=== PATIENT | male | born 1950 | race Caucasian/White ===

== ENCOUNTER 2017-05-02 09:38 | Inpatient (IN) | payer MEDICARE ==
[~2017-05-02] VITALS: Ht 175.3 cm; Wt 66.2 kg
[2017-05-02 10:53] LABS: BASOPHILS 0.2 % (0-2); EOSINOPHILS 1.1 % (0-7); HEMATOCRIT 48.8 % (42.0-54.0); HEMOGLOBIN 17.5 g/dL (13.5-17.5); IMMATURE GRANULOCYTES 0.3 % (0-5); LYMPHOCYTES 17.3 % (15-50); MCH 33.1 pg (26.0-34.0); MCHC 35.9 g/dL (31.0-37.0); MCV 92.4 fL (80.0-100.0); MEAN PLATELET VOLUME 10.5 fL (7.4-10.4); MONOCYTES 5.8 % (2-11); NEUTROPHILS 75.3 % (40-80); PLATELET COUNT 153 10x3/uL (130-400); RBC 5.28 10x6/uL (4.20-6.10); RDW 12.5 % (11.5-14.5); WBC 6.5 10x3/uL (4.8-10.8)
[2017-05-02 11:10] LABS: CALC OSMOLALITY 279 mosm/kg (275-300); CALCIUM 9.2 mg/dL (8.5-10.1); CARBON DIOXIDE 28.1 mmol/L (21.0-32.0); CHLORIDE - SERUM 98 mmol/L (98-107); CREATININE - SERUM 0.9 mg/dL (0.6-1.3); GLUCOSE 302 mg/dL (74-106); POTASSIUM - SERUM 3.7 mmol/L (3.5-5.1); SODIUM 135 mmol/L (136-145); UREA NITROGEN 10 mg/dL (7-18); eGFR NON AFRICAN AMERICAN 90 mL/min (90-120)
[2017-05-02 11:11] LABS: ALBUMIN 3.6 g/dL (3.4-5.0); ALKALINE PHOSPHATASE 157 U/L (46-116); ALT (SGPT) 18 U/L (10-68); INR 1.01 (0.85-1.17); PROTEIN - SERUM 7.5 g/dL (6.4-8.2); PROTIME 13.1 SECONDS (11.6-15.0)
[2017-05-02 11:12] LABS: APTT 26.4 SECONDS (22.8-39.4)
[2017-05-02 11:47] LABS: APPEARANCE CLEAR (CLEAR); BILIRUBIN NEGATIVE (NEGATIVE); COLOR YELLOW (YELLOW); GLUCOSE 1000 mg/dL (NEGATIVE); KETONE NEGATIVE (NEGATIVE); NITRITE NEGATIVE (NEGATIVE); PROTEIN NEGATIVE (NEGATIVE)
--- NOTE | 2017-05-02 15:14 | NUR ---
TRANSFER FROM ER AFTER MRI BY W/C. OEINTED TO ROOM. CALL LIGHT IN REACH. WILL CONT. PLAN OF CARE.
[2017-05-02 15:33] VITALS: BP 145/85; BMI 21.7
[2017-05-02 16:00] VITALS: BP 145/85
[2017-05-02 16:04] LABS: HEMOGLOBIN A1C 9.3 % (4.8-6.0)
[2017-05-02 16:23] LABS: CHOL - HDL RATIO 5.3 ratio (2.3-4.9); LDL-HDL RATIO 3.4 ratio (1.5-3.5)
[2017-05-02 16:31] LABS: CKMB 0.6 U/L (0.0-3.6); CREATINE KINASE 61 UL (21-232)
[2017-05-02 16:37] LABS: TROPONIN-I < 0.017 ng/mL (0.000-0.060)
--- NOTE | 2017-05-02 19:38 | NUR ---
ASSESSMENT COMPLETE, A&O, RESPERATIONS EVEN ON RA. IV TO LEFT AC SL, SITE CLEAN AND DRY. PT DENIES PAIN OR NEEDS, BED LOW, CL IN REACH. ALARM IN USE FOR PT SAFETY.
--- NOTE | 2017-05-02 21:03 | NUR ---
UP WITH ASSIST FROM PARAPLANNER TO BR.
--- NOTE | 2017-05-02 21:21 | NUR ---
HS MEDS GIVEN WITH FRESH ICE WATER. PT DENIES PAIN OR NEEDS, BED LOW, CL IN REACH.
[2017-05-02 22:18] VITALS: BP 162/82
[2017-05-02 22:46] LABS: CKMB 0.5 U/L (0.0-3.6); CREATINE KINASE 62 UL (21-232)
[2017-05-02 22:47] LABS: TROPONIN-I < 0.017 ng/mL (0.000-0.060)
[2017-05-03] VITALS (7 sets, daily range): BP systolic 139–175; BP diastolic 69–100; Ht 175.3 cm; Wt 66.2 kg
--- NOTE | 2017-05-03 03:36 | NUR ---
RESTING WITH EYES CLOSED, RESPERATIONS EVEN, NO S/S DISTRESS NOTED.
[2017-05-03 03:53] LABS: BASOPHILS 0 % (0-2); EOSINOPHILS 3.3 % (0-7); HEMATOCRIT 44.6 % (42.0-54.0); HEMOGLOBIN 15.5 g/dL (13.5-17.5); IMMATURE GRANULOCYTES 0.1 % (0-5); LYMPHOCYTES 23.1 % (15-50); MCH 32.4 pg (26.0-34.0); MCHC 34.8 g/dL (31.0-37.0); MCV 93.3 fL (80.0-100.0); MEAN PLATELET VOLUME 10.5 fL (7.4-10.4); MONOCYTES 6.3 % (2-11); NEUTROPHILS 67.2 % (40-80); PLATELET COUNT 146 10x3/uL (130-400); RBC 4.78 10x6/uL (4.20-6.10); RDW 12.4 % (11.5-14.5); WBC 6.9 10x3/uL (4.8-10.8)
[2017-05-03 04:23] LABS: ALBUMIN 3.1 g/dL (3.4-5.0); ALKALINE PHOSPHATASE 137 U/L (46-116); ALT (SGPT) 18 U/L (10-68); BILIRUBIN - TOTAL 0.56 mg/dL (0.2-1.3); CALCIUM 8.4 mg/dL (8.5-10.1); CARBON DIOXIDE 27.3 mmol/L (21.0-32.0); CHLORIDE - SERUM 102 mmol/L (98-107); CKMB 0.4 U/L (0.0-3.6); CREATINE KINASE 62 UL (21-232); POTASSIUM - SERUM 3.8 mmol/L (3.5-5.1); PROTEIN - SERUM 6.5 g/dL (6.4-8.2); SODIUM 140 mmol/L (136-145); UREA NITROGEN 10 mg/dL (7-18); eGFR NON AFRICAN AMERICAN 80 mL/min (90-120)
[2017-05-03 04:24] LABS: CALC OSMOLALITY 281 mosm/kg (275-300); GLUCOSE 178 mg/dL (74-106); TROPONIN-I < 0.017 ng/mL (0.000-0.060)
--- NOTE | 2017-05-03 07:55 | NUR ---
AM ROUNDS - PT IN BED AND AWAKE AT THIS TIME. DR. MCALLISTER IN ROOM. MOMNITOR SHOWING SR, HR 73. IV TO LEFT AC, SL. NON SKID SOCKS ON. CALL CASTREJON IN USE/REACH. SIDE RAILS UP X2. BED AT LOWEST POSITION. NO NEEDS AT THIS TIME. WILL CONTINUE TO MONITOR
--- NOTE | 2017-05-03 11:43 | NUR ---
PT REFUSES SCD
--- NOTE | 2017-05-03 15:10 | NUR ---
Nutrition education for DMT2: Pt and daughter present for instruction. Pt reports he drinks a lot of regular coke every day and uses a lot sugar and cream in his coffee. Pt lives alone and mostly drinks cokes; states he eats maybe one or two meals a day. Pt reports he has been losing weight lately. Reviewed CHO containing foods and the affect CHO have on glucose. Reviewed sample menus and the plate method of meal planning. Stressed the importance of eating regularly scheduled meals - at least 3 meals a day - to keep glucose under better control. Reviewed portion sizes of common CHO foods. Advised pt to stop drinking all sugary drinks, including juice, to get better control of glucose. Advised pt to start drinking water to quench thirst. Answered pts questions. Provided pt with printed diet information and RDN name and phone number. Pt with fair understanding of information provided. Thank you for the consult.
--- NOTE | 2017-05-03 17:49 | NUR ---
PT IN BED WITH NO NEEDS AT THIS TIME. WILL CONTINUE TO MONITOR
[2017-05-04 04:00] VITALS: BP 149/76
--- NOTE | 2017-05-04 05:26 | NUR ---
PT LYING ON RIGHT SIDE, RESTING COMFORTABLY. CONTINUE TO MONITOR CLOSELY.
[2017-05-04 06:15] LABS: BASOPHILS 0.1 % (0-2); EOSINOPHILS 1.9 % (0-7); HEMATOCRIT 48.5 % (42.0-54.0); HEMOGLOBIN 16.9 g/dL (13.5-17.5); IMMATURE GRANULOCYTES 0.4 % (0-5); LYMPHOCYTES 14.3 % (15-50); MCH 32.6 pg (26.0-34.0); MCHC 34.8 g/dL (31.0-37.0); MCV 93.4 fL (80.0-100.0); MEAN PLATELET VOLUME 10.3 fL (7.4-10.4); MONOCYTES 5.3 % (2-11); PLATELET COUNT 170 10x3/uL (130-400); RBC 5.19 10x6/uL (4.20-6.10); RDW 12.5 % (11.5-14.5); WBC 8.4 10x3/uL (4.8-10.8)
[2017-05-04 06:40] LABS: ALBUMIN 3.4 g/dL (3.4-5.0); ALKALINE PHOSPHATASE 156 U/L (46-116); ALT (SGPT) 16 U/L (10-68); BILIRUBIN - TOTAL 0.64 mg/dL (0.2-1.3); CALC OSMOLALITY 278 mosm/kg (275-300); CALCIUM 8.9 mg/dL (8.5-10.1); CARBON DIOXIDE 26.4 mmol/L (21.0-32.0); CHLORIDE - SERUM 101 mmol/L (98-107); CREATININE - SERUM 0.8 mg/dL (0.6-1.3); GLUCOSE 164 mg/dL (74-106); POTASSIUM - SERUM 4.2 mmol/L (3.5-5.1); PROTEIN - SERUM 7.2 g/dL (6.4-8.2); SODIUM 137 mmol/L (136-145); eGFR NON AFRICAN AMERICAN > 90 mL/min (90-120)
[2017-05-04 06:43] LABS: UREA NITROGEN 15 mg/dL (7-18)
[2017-05-04 08:00] VITALS: BP 153/84
--- NOTE | 2017-05-04 08:18 | NUR ---
AM ROUNDS - PT IN BED AND AWAKE AT THIS TIME. NON SKID SOCKS ON. SCD OFF AT THIS TIME. A&O. IV TO LEFT AC, SL. PT IS ON ROOM AIR. PT IS UP AD [place]. MONITOR SHOWING SR, HR 83. BED AT LOWEST POSITION. CALL CASTREJON IN USE/REACH. SIDE RAILS UP X2. NO NEEDS AT THIS TIME. WILL CONTINUE TO MONITOR
[2017-05-04 11:51] VITALS: BP 150/90
[2017-05-04] MEDS ORDERED: ASPIRIN325 MG PO (14:26)
[2017-05-04] MEDS ORDERED: NICODERM C1 PATCH .1 TRANSDERM (14:26)
[2017-05-04] MEDS ORDERED: GLUCOPHAGE500 MG PO (14:27)
[2017-05-04] MEDS ORDERED: HUMULIN R100 U/ML SC (14:27)
[2017-05-04] MEDS ORDERED: LOVASTATIN20 MG PO (16:16)
--- NOTE | 2017-05-04 16:23 | NUR ---
Rehab Note- Acute Rehab Prescreen order received. Visisted with the patient and talked with pt's daughter via telephone. Informed JOSE Centeno that the patient could be accepted to [facility] Acute Rehab today. Thank you for this referral! Neeta Barry RN Clinical Liaison, [facility] Rehab
[2017-05-04 17:26] VITALS: BP 167/87
--- NOTE | 2017-05-04 17:52 | NUR ---
Patient Name: JEFRY RODRIGUEZ Admission Status: ER Accout number: [id number] Admission Date: 05-03-2017 : 1950 Admission Diagnosis: Attending: OSMAR DOCKERY Current LOS: 1 Anticipated DC Date: 05-04-2017 Planned Disposition: Inpatient Rehab Primary Insurance: MEDICARE A & B PLANNED EXTERNAL PROVIDER: [facility] Discharge Planning Comments: * Is the patient Alert and Oriented? Yes 0 * How many steps to enter\exit or inside your home? 14 0 * PCP DOCTOR IN [facility], CANNOT REMEMBER 0 * [facility] [place] 0 * Preadmission Environment Home Alone 0 * ADLs Independent 0 * Equipment None 0 * Other Equipment NO MEDICAL EQUIPMENT PROVIDER PREFERENCE 0 * List name and contact numbers for known caregivers / representatives who currently or will assist patient after discharge: AMAURY SONG, DTR, 0 * Community resources currently utilized None 0 * Please name any agencies selected above. NONE 0 * Additional services required to return to the preadmission environment? Yes * Can the patient safely return to the preadmission environment? Yes 0 * Has this patient been hospitalized within the prior 30 days at any hospital? No 0 CM MET WITH PT IN ROOM TO DISCUSS DISCHARGE PLANNING AND NEEDS. PT REPORTS LIVING AT HOME INDEPENDENTLY AND ALONE. PT HAS NO MEDICAL EQUIPMENT AND NO OUTSIDE SERVICES ASSISTING IN THE HOME. CM DISCUSSED AVAILABILITY OF HOME HEALTH, REHAB SERVICES AND MEDICAL EQUIPMENT. PT WOULD LIKE TO GO TO REHAB AT [place] TO RETURN HOME. PT REPORTS HIS DAUGHTER WILL PICK HIM UP FOR DISCHARGE HOME. CM SPOKE TO MERI OF INPATIENT REHAB, PT WILL ADMIT TO REHAB TODAY. PT NOTIFIED AND IN AGREEMENT WITH PLAN. Food Processing Chemist: Noah Bonilla
--- NOTE | 2017-05-04 18:19 | NUR ---
CALLED REPORT TO INPT REHAB. IV TO LEFT AC D/C. 2X2 DRESSING APPLIED AND SECURED WITH TAPE. PT LEFT FLOOR VIA WHEELCHAIR WITH BLOCK HAND. WILL D/C
--- NOTE | 2017-05-09 13:30 | EC ---
PATIENT:JEFRY RODRIGUEZ DATE OF SERVICE: 05/03/17 SEX: M MEDICAL RECORD: [id number] DATE OF : [birth year] LOCATION:D.M2 D.213 AGE OF PATIENT: 66 ADMISSION DATE: 05/03/17 REFERRING PHYSICIAN: INTERPRETING PHYSICIAN: BENJY ENRIQUEZ MD ECHOCARDIOGRAM REPORT ECHO CHARGES 4 ECHO COMPLETE CLINICAL DIAGNOSIS: DYSPNEA ECHOCARDIOGRAPHIC MEASUREMENTS (adult normal given) AC root (d.<3.7cm) 4.0 cm LV Septum d (<1.2 cm> 1.2 cm Valve Excursion 1.8 cm LV Septum (systole) 1.7 cm Left Atria (s.<4.0cm> 3.0 cm LVPW d(<1.2cm) 1.6 cm RV (d.<2.3cm) 3.8 cm LVPW (sytole) 2.2 cm LV diastole(<5.6CM) 4.5 cm MV E-F(>70mm/sec) cm LV systole 2.8 cm LVOT Diameter 1.8 cm MV exc.(>10mm) 1.4 cm Est.ejection fraction (50-75%) % Pericardial Effusion N DOPPLER: LVIT cm/sec A 82.0 cm/sec E 63.0 cm/sec LA cm/sec RVSP 26 mmHg LVOT 107 cm/sec AOP1/2T m/s Asc. Ao 136 cm/sec RVOT 90 cm/sec RA cm/sec PA 123 cm/sec AV Gradient Peak 7.42 mmHg AV Mean 3.51 mmHg AV Area 2.1 cm MV Gradient Peak 4.02 mmHg MV Mean 1.50 mmHg MV Area cm COMMENTS: Alliances Consultant: 2 LIAM HURT Clinical Education Consultant: 3 Dr. Barfield TAPE# PACS DATE OF SERVICE: 05/03/2017 Adequate 2D echo, color flow, spectral Doppler, and M-mode. Borderline LVH. LV internal dimension is normal. Wall motion is normal. EF of 55%. Aortic valve is tricuspid. No stenosis by Doppler interrogation. Left atrium is normal. Mitral valve shows no prolapse. Trace MR. Right-sided chambers grossly normal. Trace TR. TRANSINT:[id number] Voice Confirmation ID: [id number] DOCUMENT ID: [id number] ECHOCARDIOGRAM REPORT [id number] JEFRY RODRIGUEZ BENJY ENRIQUEZ MD at 1330 CC: [id number] DICTATION DATE: 05/03/17 1616 REHABILITATION CONSULTANT: 05/03/17 1801 DIS IN 05/04/17 [place] [id number] [place] [address]
== END 2017-05-04 18:24 | DRG 65 ==
LOC: D.ER 09:38 → OBSVTIME 13:45 → D.M2 13:45
PROVIDERS: Emergency Medicine; ADMIT Emergency Medicine
DX: I63.512 Cerebral infarction due to unspecified occlusion or stenosis of left middle cerebral artery (principal); G81.91 Hemiplegia, unspecified affecting right dominant side; F17.203 Nicotine dependence unspecified, with withdrawal; R40.2412 Glasgow coma scale score 13-15, at arrival to emergency department; W19.XXXA Unspecified fall, initial encounter; E11.65 Type 2 diabetes mellitus with hyperglycemia; I10 Essential (primary) hypertension

== ENCOUNTER 2017-05-04 16:26 | Inpatient (IN) | payer MEDICARE ==
[~2017-05-04] VITALS: Ht 175.3 cm; Wt 64.6 kg
[~2017-05-04 16:26] MED LIST: ASPIRIN325 MG PO; GLUCOPHAGE500 MG PO; HUMULIN R100 U/ML SC; LOVASTATIN20 MG PO; NICODERM C1 PATCH .1 TRANSDERM
[2017-05-04 19:30] VITALS: BP 123/92
[2017-05-04 23:04] VITALS: BMI 21.1
[2017-05-05 07:00] LABS: BASOPHILS 0.1 % (0-2); EOSINOPHILS 1.9 % (0-7); HEMATOCRIT 48.7 % (42.0-54.0); IMMATURE GRANULOCYTES 0.2 % (0-5); LYMPHOCYTES 15.6 % (15-50); MCH 32.6 pg (26.0-34.0); MCHC 34.9 g/dL (31.0-37.0); MCV 93.5 fL (80.0-100.0); MEAN PLATELET VOLUME 10.2 fL (7.4-10.4); NEUTROPHILS 75.2 % (40-80); PLATELET COUNT 184 10x3/uL (130-400); RBC 5.21 10x6/uL (4.20-6.10); RDW 12.4 % (11.5-14.5)
[2017-05-05 07:18] LABS: CALC OSMOLALITY 273 mosm/kg (275-300); CALCIUM 9.2 mg/dL (8.5-10.1); CARBON DIOXIDE 24.4 mmol/L (21.0-32.0); CHLORIDE - SERUM 99 mmol/L (98-107); CREATININE - SERUM 0.9 mg/dL (0.6-1.3); GLUCOSE 152 mg/dL (74-106); POTASSIUM - SERUM 4.3 mmol/L (3.5-5.1); SODIUM 134 mmol/L (136-145); UREA NITROGEN 20 mg/dL (7-18); eGFR NON AFRICAN AMERICAN 90 mL/min (90-120)
[2017-05-05 07:56] VITALS: BP 140/79
[2017-05-05 13:19] VITALS: Ht 175.3 cm; Wt 64.6 kg
[2017-05-05 20:30] VITALS: BP 126/57
[2017-05-06 06:15] LABS: BASOPHILS 0.1 % (0-2); EOSINOPHILS 3.9 % (0-7); IMMATURE GRANULOCYTES 0.4 % (0-5); LYMPHOCYTES 16.4 % (15-50); MCH 32.6 pg (26.0-34.0); MCHC 34.7 g/dL (31.0-37.0); MEAN PLATELET VOLUME 10.6 fL (7.4-10.4); MONOCYTES 6.5 % (2-11); NEUTROPHILS 72.7 % (40-80); PLATELET COUNT 214 10x3/uL (130-400); RBC 5.21 10x6/uL (4.20-6.10); RDW 12.5 % (11.5-14.5); WBC 8.5 10x3/uL (4.8-10.8)
[2017-05-06 06:29] LABS: CALC OSMOLALITY 279 mosm/kg (275-300); CALCIUM 9.1 mg/dL (8.5-10.1); CARBON DIOXIDE 25.2 mmol/L (21.0-32.0); CHLORIDE - SERUM 99 mmol/L (98-107); CREATININE - SERUM 0.9 mg/dL (0.6-1.3); GLUCOSE 142 mg/dL (74-106); POTASSIUM - SERUM 4.1 mmol/L (3.5-5.1); SODIUM 136 mmol/L (136-145); eGFR NON AFRICAN AMERICAN 90 mL/min (90-120)
[2017-05-06 06:30] LABS: UREA NITROGEN 29 mg/dL (7-18)
[2017-05-06 10:22] VITALS: BP 151/63
[2017-05-06 22:38] VITALS: BP 130/68
[2017-05-07 09:07] VITALS: BP 121/85
[2017-05-07 20:35] VITALS: BP 115/71
[2017-05-08 09:14] VITALS: BP 127/76
[2017-05-08 20:17] VITALS: BP 144/86
[2017-05-09 05:59] LABS: BASOPHILS 0.2 % (0-2); EOSINOPHILS 6.8 % (0-7); HEMATOCRIT 46.8 % (42.0-54.0); IMMATURE GRANULOCYTES 0.2 % (0-5); LYMPHOCYTES 21.7 % (15-50); MCH 32.4 pg (26.0-34.0); MCHC 34.2 g/dL (31.0-37.0); MCV 94.7 fL (80.0-100.0); MEAN PLATELET VOLUME 10.5 fL (7.4-10.4); MONOCYTES 5.2 % (2-11); NEUTROPHILS 65.9 % (40-80); PLATELET COUNT 243 10x3/uL (130-400); RBC 4.94 10x6/uL (4.20-6.10); RDW 12.3 % (11.5-14.5); WBC 5.8 10x3/uL (4.8-10.8)
[2017-05-09 06:21] LABS: CALC OSMOLALITY 283 mosm/kg (275-300); CALCIUM 9.1 mg/dL (8.5-10.1); CARBON DIOXIDE 27.4 mmol/L (21.0-32.0); CHLORIDE - SERUM 103 mmol/L (98-107); CREATININE - SERUM 0.9 mg/dL (0.6-1.3); GLUCOSE 132 mg/dL (74-106); POTASSIUM - SERUM 4.3 mmol/L (3.5-5.1); SODIUM 139 mmol/L (136-145); UREA NITROGEN 24 mg/dL (7-18); eGFR NON AFRICAN AMERICAN 90 mL/min (90-120)
[2017-05-09 07:59] VITALS: BP 120/68
--- NOTE | 2017-05-09 11:18 | RHP ---
PATIENT: JEFRY RODRIGUEZ MEDICAL RECORD: [id number] ACCOUNT: [id number] LOCATION:[facility]1116 : [birth year] ADMISSION DATE: 05/04/17 REHABILITATION HISTORY AND PHYSICAL EXAMINATION POST ADMISSION PHYSICIAN EXAMINATION ADMITTING DIAGNOSIS: Acute lacunar infarction involving the left basal ganglia with right-sided involvement. HISTORY OF PRESENT ILLNESS: The patient admitted to inpatient rehab for stroke, acute lacunar infarction involving the left basal ganglia. He is a 66-year-old gentleman who presented to the Emergency Room with right-sided weakness of his upper and lower extremity. Tuesday night, on 04/30/2017, he fell and had to crawl back to his bed. He could not stand up, he was able to ambulate at times, but was very unsteady with right-sided weakness. Daughter checked on him on Tuesday and he has significant right-sided weakness. He was immediately brought to the Emergency Room. He smokes a pack and half a day. He has a past medical history of hypertension, diabetes, but does not regularly see a physician. He complains of fatigue, dyspnea. He was admitted with TIA and hyperglycemia after admission to the acute hospital. After further testing, neurology was consulted and MRI confirmed he had a CVA. He was admitted with polydipsia and polyuria from his diabetes and will definitely need inpatient care to get back to his prior level of function and have any chance returning back to home. COMORBIDITIES: In this patient include a CVA, hypertension, nicotine dependence, type 2 diabetes. PAST MEDICAL HISTORY: Significant for diabetes and hypertension. PAST SURGICAL HISTORY: Includes appendectomy. ALLERGIES: No known drug allergies. CURRENT MEDICATIONS: Include Protonix 40 mg daily, nicotine patch, metformin 500 mg b.i.d. with meals, Mevacor 20 mg at bedtime, aspirin 325 daily. He is on glucose replacement protocol. He is on an electrolyte protocol at this time. He is on polyethylene glycol 17 grams in 8 ounces of water daily, and he is on a low resistant sliding scale. HABITS: Does have a history of tobacco use. FAMILY HISTORY: Noncontributory. SOCIAL HISTORY: The patient hopes to return back to [place] to get back to his prior level of functioning. REVIEW OF SYSTEMS: GENERAL: He does complain of weakness and fatigue, mainly on the right side. HEENT: He denies cold, cough, or congestion. CARDIOVASCULAR: Denies chest pain. PHYSICAL EXAMINATION: VITAL SIGNS: Stable, afebrile. GENERAL: An elderly gentleman in no acute distress, alert upon exam. HEENT: Normocephalic and atraumatic. Mucosa moist. HISTORY AND PHYSICAL [id number] JENNIFERJEFRY W NECK: Supple. No lymphadenopathy. LUNGS: Clear at this time. HEART: Regular rate and rhythm. ABDOMEN: Benign. EXTREMITIES: No clubbing, cyanosis or edema. NEUROLOGIC: He does have noted weakness, especially in his right upper extremity and right lower extremity. LABORATORY DATA: Admit white count is 8.0, H&H of 17 and 48, and platelet count was 194. Sodium is 134, potassium 4.3, BUN and creatinine of 20 and 0.9 and blood sugar is noted to be 152. ASSESSMENT: This is a 66-year-old gentleman admitted to the rehab with a working diagnosis of cerebrovascular accident with right body involvement. The patient has potential to make improvement. We instituted the following multidisciplinary therapies including to, but not limited to physical, occupational, respiratory, speech, nutritional services, prosthetics and orthotics. Given his complex condition and risk for more complications, rehabilitation services cannot be provided at a low level of care such as a long term facility. PLAN: 1. Admit to [facility] rehab for intensive inpatient therapy to include the following disciplines: A. Physical therapy to improve gait, all transfer skills and bed mobility to a modified independent level. B. Occupational therapy to improve activities of daily living to a modified independent level. C. Case management to assist with discharge planning and placement options. D. Nutrition to assist with nutritional needs. E. Rehabilitation nursing to assist in monitoring the patient's underlying medical conditions and to assist with any type of bowel or bladder management. 2. The patient's current medication and medical care will be continued. 3. The patient will be placed on standard fall precautions. 4. The patient's estimated length of stay is approximately 7-10 days. 5. Discuss this patient during care team staff meeting this week. TRANSINT:[id number] Voice Confirmation ID: [id number] DOCUMENT ID: [id number] JOSIE notes whether there has been none or any medical/functional change since admission: - No change since prescreen. JOSIE attests patient continues to be appropriate for IRF: - Continues to be appropriate. HISTORY AND PHYSICAL [id number] JEFRY RODRIGUEZ SCOTT MD at 1118 CC: [id number] DICTATION DATE: 05/05/17 1141 DE ICER FINISHER: 05/05/17 1220 ADM IN [place] [id number] [place] [id number]
[2017-05-09 19:34] VITALS: BP 142/80
[2017-05-10 08:54] VITALS: BP 148/78
[2017-05-10 21:37] VITALS: BP 136/75
[2017-05-11 08:00] VITALS: BP 148/84
[2017-05-11 20:15] VITALS: BP 124/69
[2017-05-12 05:44] LABS: BASOPHILS 0.2 % (0-2); EOSINOPHILS 4.4 % (0-7); HEMATOCRIT 45.8 % (42.0-54.0); HEMOGLOBIN 15.7 g/dL (13.5-17.5); IMMATURE GRANULOCYTES 0.2 % (0-5); LYMPHOCYTES 19.3 % (15-50); MCHC 34.3 g/dL (31.0-37.0); MCV 93.5 fL (80.0-100.0); MEAN PLATELET VOLUME 10.2 fL (7.4-10.4); MONOCYTES 6.9 % (2-11); PLATELET COUNT 241 10x3/uL (130-400); WBC 5.9 10x3/uL (4.8-10.8)
[2017-05-12 06:07] LABS: CALC OSMOLALITY 279 mosm/kg (275-300); CALCIUM 8.9 mg/dL (8.5-10.1); CARBON DIOXIDE 26.6 mmol/L (21.0-32.0); CHLORIDE - SERUM 101 mmol/L (98-107); CREATININE - SERUM 0.8 mg/dL (0.6-1.3); GLUCOSE 160 mg/dL (74-106); POTASSIUM - SERUM 4.2 mmol/L (3.5-5.1); SODIUM 137 mmol/L (136-145); UREA NITROGEN 20 mg/dL (7-18); eGFR NON AFRICAN AMERICAN > 90 mL/min (90-120)
[2017-05-12 08:45] VITALS: BP 145/82
[2017-05-12 20:40] VITALS: BP 129/77
[2017-05-13 08:41] VITALS: BP 156/83
[2017-05-13 20:53] VITALS: BP 138/72
[2017-05-14 10:28] VITALS: BP 150/82
[2017-05-14 20:15] VITALS: BP 143/84
[2017-05-15 09:04] VITALS: BP 130/79
[2017-05-16 00:01] VITALS: BP 138/76
[2017-05-16 06:08] LABS: BASOPHILS 0 % (0-2); EOSINOPHILS 3.3 % (0-7); HEMATOCRIT 46.3 % (42.0-54.0); HEMOGLOBIN 15.7 g/dL (13.5-17.5); IMMATURE GRANULOCYTES 0.2 % (0-5); LYMPHOCYTES 21.4 % (15-50); MCH 31.9 pg (26.0-34.0); MCHC 33.9 g/dL (31.0-37.0); MCV 94.1 fL (80.0-100.0); MEAN PLATELET VOLUME 10.2 fL (7.4-10.4); MONOCYTES 6.2 % (2-11); NEUTROPHILS 68.9 % (40-80); PLATELET COUNT 235 10x3/uL (130-400); RBC 4.92 10x6/uL (4.20-6.10); WBC 6.6 10x3/uL (4.8-10.8)
[2017-05-16 06:23] LABS: CALC OSMOLALITY 278 mosm/kg (275-300); CALCIUM 8.9 mg/dL (8.5-10.1); CARBON DIOXIDE 27.2 mmol/L (21.0-32.0); CHLORIDE - SERUM 101 mmol/L (98-107); CREATININE - SERUM 0.8 mg/dL (0.6-1.3); GLUCOSE 143 mg/dL (74-106); POTASSIUM - SERUM 4.2 mmol/L (3.5-5.1); SODIUM 137 mmol/L (136-145); UREA NITROGEN 21 mg/dL (7-18); eGFR NON AFRICAN AMERICAN > 90 mL/min (90-120)
[2017-05-16 09:27] VITALS: BP 153/86
[2017-05-16 22:57] VITALS: BP 129/59
[2017-05-17 09:54] VITALS: BP 132/85
--- NOTE | 2017-06-25 13:26 | DS ---
PATIENT:JEFRY RODRIGUEZ :[birth year] MEDICAL RECORD: [id number] DISCHARGE SUMMARY ADMISSION DATE: 05/04/17 DISCHARGE DATE: 05/17/17 This is a discharge from inpatient rehab dated 05/17/2017. PRIMARY DIAGNOSIS: Decreased functional mobility and ability to provide activities of daily living secondary to cerebrovascular accident. SECONDARY DIAGNOSES: 1. Right-sided weakness. 2. Diabetes. 3. Hyperlipidemia. 4. Tobacco abuse. 5. Hypertension. CONSULTS THIS HOSPITALIZATION: Neurology with Dr. Frank. HOSPITAL COURSE: Full H&P is located elsewhere on the chart on this 66-year-old male who was admitted to inpatient rehab for physical therapy and occupational therapy to improve gait, transfer skills, bed mobility, and activities of daily living to a modified independent level. He was evaluated by PT and OT and their plans of care were followed. He required assisted care for observation and assessment and medication administration. Electrolytes were managed by protocol. Fingerstick blood sugars were monitored throughout his hospital stay with appropriate adjustment in medications as needed. He was evaluated by speech therapy and did require services. He was cooperative with therapies, progressing towards goals. Case management was involved for discharge planning. He was considered stable for discharge on 05/17/2017. He was walking 200 feet with standby assistance with wheelchair back and 160 feet with a rolling walker. He did require setup in standby assistance for feeding, grooming, bathing, toileting, and toilet transfer with minimal assist for upper body and lower body dressing and shower. Dr. Frank was consulted for some worsening right-sided weakness. Repeat MRI did not show additional stroke, just some changes related to existing CVA. No further recommendations per Dr. Frank. DISCHARGE MEDICATIONS: As per discharge medication reconciliation. DISCHARGE DISPOSITION: The patient is discharged to [facility]. He will continue his current diet and level of activity. He will continue with PT, OT, and ST. He will follow with the half-way medical directors and then his primary care as directed. At least 30 minutes were spent in this discharge activity. TRANSINT:[id number] Voice Confirmation ID: [id number] DOCUMENT ID: [id number] Dictated By: SALOMÓN MAN I have interviewed/examined the above patient and agree with these documented findings. DISCHARGE SUMMARY REPORT [id number] JEFRY RODRIGUEZ SCOTT MD at 1327 at 1326 CC: [id number] DICTATION DATE: 06/25/17920 TOUR SALES REPRESENTATIVE: 06/25/17 1258 DIS IN 05/17/17 [facility] [address] [place] [id number]
== END 2017-05-17 10:48 | DRG 65 ==
LOC: D.REHAB 16:26
PROVIDERS: ADMIT Emergency Medicine
DX: I63.9 Cerebral infarction, unspecified (principal); F17.203 Nicotine dependence unspecified, with withdrawal; R53.1 Weakness; I10 Essential (primary) hypertension; E11.65 Type 2 diabetes mellitus with hyperglycemia

== ENCOUNTER 2019-04-16 12:55 | Inpatient (IN) | payer MEDICARE ==
[~2019-04-16] VITALS: Ht 175.3 cm; Wt 72.1 kg
--- NOTE | ~2019-04-16 | HEMODYNAMI ---
PATIENT:JEFRY RODRIGUEZ MEDICAL RECORD: [id number] : 52 LOCATION:[place] [address] ADMISSION DATE: 04/16/19 Generatedon:04/18/201915:35 Patient name: JEFRY RODRIGUEZ Patient #: [id number] SSN: : 1950 Date of study: 04/18/2019 Page: Of Hemodynamic Procedure Report Patient Data Patient Demographics Procedure consent was obtained First Name: JEFRY Gender: Male Last Name: JENNIFER : 1950 Middle Initial: W Age: 68 year(s) Patient #: [id number] Race: Unknown Additional ID: [id number] Contact details Address: [place] [address] State: [place] City: [place] Zip code: [address] Past Medical History Allergies: No known allergies Admission Admission Data Admission Date: 04/16/2019 Admission Time: 16:22 Room #: [facility] Height (in.): 69 BSA: 1.87 (m2) Height (cm.): 175.26 BMI: 23.33 (kg/m2) Weight (lbs.): 158 Weight (kg.): 71.67 Procedure Procedure Types Cath Procedure Peripheral Cath Diagnostic Procedure Talent Buyer Peripheral Procedures Venography Extremity Left Lower Ext. Venagram Procedure Description Procedure Date Procedure Date: 04/18/2019 Procedure Start Time: 14:30 Procedure Staff Name Function Lloyd Saunders MD Performing Physician Tianna Contreras RT Licensing Officer Ellen Marques RN Nurse Jesika Desai RN Nurse PIOTR DE LA VEGA RT Scrub Procedure Data Cath Procedure Fluoroscopy Diagnostic fluoroscopy Total fluoroscopy Time: 7.3 time: 7.3 min min Diagnostic fluoroscopy Total fluoroscopy dose: 100 dose: 100 mGy mGy Contrast Material Contrast Material Type Amount (ml) Isovue 300 90 Diagnostic catheters Device Type Used For End Catheter Placement Varun Lozoya 5FR. 100CM catheter ([id number]) Procedure Medications Medication Administration Route Dosage Heparin Flush Bag added to field 2 bags (1000units/500ml NS) Lidocaine 1% added to field 20 Benadryl I.V. 25 mg Fentanyl I.V. 50 mcg Versed I.V. 1 mg Versed I.V. 1 mg Fentanyl I.V. 50 mcg Heparin Bolus I.V. 5000 units Versed I.V. 0.5 mg Fentanyl I.V. 25 mcg Hemodynamics Rest BSA: 1.87 (m2) O2 Consumption: Estimated: 222.32 (ml/min) O2 Consumption indexed : Estimated:118.89 (ml/min/m) Heart Rate: 77 (bpm) Snapshots Pre Cath Intra NCS Post Cath Vital Signs Time Heart Resp SPO2 etCO2 NIBP (mmHg) Rhythm Pain Sedation Rate (ipm) (%) (mmHg) Status Level (bpm) 14:08:59 76 15 100 18.8 144/98(117) NSR 0 (11) 10(A) , No pain 14:13:11 74 13 100 23.3 164/86(137) NSR 0 (11) 10(A) , No pain 14:17:31 76 19 100 15.8 155/86(117) NSR 0 (11) 10(A) , No pain 14:21:45 80 20 100 9 162/92(115) NSR 0 (11) 10(A) , No pain 14:26:05 79 22 100 24.8 153/81(111) NSR 0 (11) 10(A) , No pain 14:30:23 76 16 100 0 164/80(117) NSR 0 (11) 10(A) , No pain 14:34:43 72 15 97 0 150/85(106) NSR 0 (11) 10(A) , No pain 14:38:57 71 46 98 26.3 164/87(140) NSR 0 (11) 8(A) , No pain 14:43:15 84 20 98 30.8 170/87(109) NSR 0 (11) 8(A) , No pain 14:47:38 71 15 98 30.8 161/82(136) NSR 0 (11) 8(A) , No pain 14:51:56 74 19 98 29.3 155/88(132) NSR 0 (11) 8(A) , No pain 14:56:12 70 15 100 12 167/89(137) NSR 0 (11) 8(A) , No pain 15:00:32 63 15 99 26.3 168/87(135) NSR 0 (11) 8(A) , No pain 15:04:54 54 16 99 0 187/83(160) NSR 0 (11) 8(A) , No pain 15:09:22 62 20 98 27.8 180/86(113) NSR 0 (11) 8(A) , No pain 15:13:46 60 14 100 30.1 185/86(110) NSR 0 (11) 8(A) , No pain 15:18:11 60 17 99 0 189/95(156) NSR 0 (11) 8(A) , No pain 15:22:39 47 15 100 2.2 179/88(148) NSR 0 (11) 8(A) , No pain 15:27:01 51 17 100 4.5 190/89(104) NSR 0 (11) 8(A) , No pain 15:31:46 0 No Cuff NSR 0 (11) 8(A) , No pain Medications Time Medication Route Dose Verified Delivered Reason Notes Effectiveness by by 14:08:48 Heparin Flush added 2 Lloyd Desai used for Bag to bags Chip Saunders procedure (1000units/500ml field MD MOORE NS) 14:09:12 Lidocaine 1% added 20ml Lloyd Desai for local to vial Chip Saunders anesthetic field MD MOORE 14:12:04 Benadryl I.V. 25 mg Lloyd Hughes for sedation Chip Marques RN, MD 14:34:11 Fentanyl I.V. 50 Lloyd Hughes for sedation mcg Chip Marques RN, MD 14:34:25 Versed I.V. 1 mg Lloyd Hughes for sedation Chip Marques RN, MD 14:36:24 Versed I.V. 1 mg Lloyd Hughes for sedation Chip Marques RN, MD 14:36:32 Fentanyl I.V. 50 Lloyd Hughes for sedation mcg Chip Marques RN, MD 14:40:24 Heparin Bolus I.V. 5000 Lloyd Hughes for units Chip gordon MD 15:13:08 Versed I.V. 0.5 Lloyd Hughes for sedation mg Chip Marques RN, MD 15:13:17 Fentanyl I.V. 25 Lloyd Ellen for sedation mcg Chip Marques RN, MD Procedure Log Time Note 14:02:04 Patient Height : 69 inches 14:02:10 Patient Weight : 158 lbs 14:02:36 Time tracking: Regular hours (M-F 7:00 - 5:00) 14:02:52 Plan of Care:Hemodynamics will remain stable., Cardiac rhythm will remain stable., Comfort level will be maintained., Respiratory function will remain adequate., Patient/ family verbilizes understanding of procedure., Procedure tolerated without complication., Recovers from procedure without complications.. 14:03:04 Patient received from Other to IR Alert and oriented. Tansferred to table in Prone position. 14:03:11 Signed procedure consent form obtained from patient. 14:03:22 H&P Date Dictated: 04/18/2019 Within 30 days and on chart.. 14:03:26 Pre-procedure instructions explained to patient. 14:03:27 Pre-op teaching completed and patient verbalized understanding. 14:03:29 Family in waiting room. 14:03:31 Patient NPO since Midnight. 14:03:33 - 14:03:46 Patient allergic to No known allergies 14:03:50 Is the patient allergic to Iodine/contrast media? No. 14:04:01 Is patient on blood thinner?Yes 14:04:06 ACC The patient was administered the following blood thiners within the last 24 hours: ACCLovenox 14:05:40 Patient diabetic? Yes. 14:05:59 If diabetic: On Metformin? Yes 14:06:07 - 14:06:36 If on Metformin: Last Dose? 04/15/2019 14:06:40 - 14:06:42 ----Pre-sedation anethsthesia assessment.---- 14:06:46 Previous problem with sedation/anesthesia? No ? 14:06:49 Snore? Yes 14:06:51 Sleep apnea? No 14:06:54 Deviated septum? No 14:06:56 Opens mouth fully? Yes 14:06:58 Sticks out tongue? Yes 14:07:00 Airway obstruction? No ? 14:07:08 Dentures? Yes in and secured 14:07:19 IV patent on arrival in right forearm with D5/.45%NaCl at KVO. 14:07:36 Popliteal region area was prepped with chlora-prep and draped in steril e fashion 14:07:38 - 14:07:49 ECG and BP/O2 sat monitors applied to patient. 14:07:50 Vital chart was started 14:07:51 Baseline sample Acquired. 14:07:53 Full Disclosure recording started 14:07:54 - 14:08:18 Use device set IR Diagnostic 14:08:24 Tegaderm 4 x 4 ([id number]) opened to sterile field. 14:08:26 Sterile Angiographic Pack opened to sterile field. 14:08:27 Bag Decanter () opened to sterile field. 14:08:43 Cordis 6Fr BRITE TIP 11cm sheath opened to sterile field. 14:08:48 Heparin Flush Bag (1000units/500ml NS) 2 bags added to field was administered by Lloyd Saunders MD; used for procedure; Verbal order read back and verified. 14:08:53 Micropuncture VSI 4FR kit opened to sterile field. 14:09:12 Lidocaine 1% 20ml vial added to field was administered by Lloyd mena MD; for local anesthetic; Verbal order read back and verified. 14:12:04 Benadryl 25 mg I.V. was administered by Ellen Marques RN; for sedation; Verbal order read back and verified. 14:28:11 Physician arrived 14:28:12 --------ALL STOP TIME OUT------ 14:28:13 Final Timeout: patient, procedure, and site verified with staff and physician. All members of the team are in agreement. 14:28:21 Fire Safety Assessment: A--An alcohol-based skin anteseptic being used preoperatively., C--Open oxygen or nitrous oxide is being used. 14:29:36 Maximum allowable contrast dose (3.7 X eGFR X 0.75)249.75 ml. 14:29:44 1) 90+ Normal kidney functon but urine findings or structural abnormalities or genetic trait point to kidney disease. 14:29:53 Procedure started. 14:30:07 Local anesthetic to left popliteal vein with Lidocaine 1% by Lloyd Saunders MD.INITIAL ACCESS ONLY 14:30:44 Venous access obtained using ultrasound guidance. 14:34:11 Fentanyl 50 mcg I.V. was administered by Ellen Marques RN; for sedation; Verbal order read back and verified. 14:34:25 Versed 1 mg I.V. was administered by Ellen Marques RN; for sedation; Verbal order read back and verified. 14:36:24 Versed 1 mg I.V. was administered by Ellen Marques RN; for sedation; Verbal order read back and verified. 14:36:32 Fentanyl 50 mcg I.V. was administered by Ellen Marques RN; for sedation; Verbal order read back and verified. 14:40:24 Heparin Bolus 5000 units I.V. was administered by Ellen Marques RN; for anticoagulation; Verbal order read back and verified. 15:03:01 Zelante 8Fr Angiojet catheter opened to sterile field. 15:03:02 ROADRUNNER .035 145 glide wire ([id number]) opened to sterile field. 15:03:[address] Kimo ([id number]) opened to sterile field. 15:03:04 AMPLATZ Super stiff 3mm J 260cm wire ([id number]) opened to sterile field. 15:03:06 A Merit Impress Lozoya 5FR. 100CM catheter ([id number]) was advanced over the wire and used for . 15:12:31 INFLATOR BasixTOUCH (IL0991) opened to sterile field. 15:12:56 Inflate balloon Inflation number: 1 A EVERCROSS 7 X 200 X 135 ([id number]) was prepped and advanced across the Undefined1 , then inflated . 15:13:08 Versed 0.5 mg I.V. was administered by Ellen Marques RN; for sedation; Verbal order read back and verified. 15:13:17 Fentanyl 25 mcg I.V. was administered by Ellen Marques RN; for sedation; Verbal order read back and verified. 15:24:11 Procedure ended.(Physican Out) 15:28:47 Fluoroscopy time 07.30 minutes. 15:28:56 Fluoroscopy dose: 100 mGy 15:28:56 Flurop Dose total: 100 15:30:58 Contrast amount:Isovue 300 90ml. 15:32:34 Procedure and supply charges have been captured, reviewed, submitted an d are correct. 15:35:04 Vital chart was stopped Intervention Summary Intervention Notes Time ActionType Lesion and Equipment Used Action# Pressure Duration Attributes 15:12:56 Inflate Undefined1 EVERCROSS 7 X 1 0 00:00 balloon 200 X 135 ([id number]) Device Usage Item Name Manufacture Quantity Catalog Number Hospital Part Current M inimal Lot# / Charge Number Stock Stock Serial# Code Tegaderm 4 x 4 3M 1 1626W 235149 [id number] 495439 5 ([id number]) Sterile Cardinal 1 [id number] 372551 702270 5 Angiographic Health Pack Bag Decanter Microtek 1 195911 91416 556208 5 () Medical Inc. Cordis 6Fr Cardinal 1 [id number] 960314 135706 5 BRITE TIP 11cm Health sheath Micropuncture VSI VASCULAR 1 7266V 049266 748608 5 VSI 4FR kit SOLUTIONS Zelante 8Fr Bartlett 1 537333-628 875785 477635 815151 5 Angiojet Scientific catheter ROADRUNNER .035 Cook Medical 1 [id number] 615262 610162 273680 5 145 glide wire ([id number]) SHEATH 8FR St St Kimo 1 422959 834986 548434 307203 5 Kimo (884624) AMPLATZ Super Bartlett 1 [id number] 543274 680418 5 stiff 3mm J Scientific 260cm wire ([id number]) Merit Impress Merit 1 [id number] 614620 702242 5 Lozoya 5FR. Medical 100CM catheter ([id number]) INFLATOR Merit 1 DQ0386 710326 061751 701693 5 Loksys Solutions Medical ([id number]) EVERCROSS 7 X Medtronic 1 [id number] 177024 553421 525558 1 200 X 135 ([id number]) Signature Audit [place] Stage Time Signature Unsigned Intra-Procedure 04/18/2019 Tianna Contreras 3:35:00 PM RT(R) [place] [address] [place] [address]
[2019-04-16 13:28] LABS: BASOPHILS 0.1 % (0-2); EOSINOPHILS 1.5 % (0-7); HEMATOCRIT 47.4 % (42.0-54.0); HEMOGLOBIN 16.4 g/dL (13.5-17.5); IMMATURE GRANULOCYTES 0.2 % (0-5); LYMPHOCYTES 12.3 % (15-50); MCH 31.2 pg (26.0-34.0); MCHC 34.6 g/dL (31.0-37.0); MCV 90.3 fL (80.0-100.0); MEAN PLATELET VOLUME 10.2 fL (7.4-10.4); MONOCYTES 6.3 % (2-11); NEUTROPHILS 79.6 % (40-80); PLATELET COUNT 213 10x3/uL (130-400); RBC 5.25 10x6/uL (4.20-6.10); RDW 12.9 % (11.5-14.5); WBC 8.3 10x3/uL (4.8-10.8)
[2019-04-16 13:39] LABS: CALC OSMOLALITY 273 mosm/kg (275-300); CALCIUM 9.2 mg/dL (8.5-10.1); CARBON DIOXIDE 28.6 mmol/L (21.0-32.0); CHLORIDE - SERUM 97 mmol/L (98-107); GLUCOSE 246 mg/dL (74-106); POTASSIUM - SERUM 4.1 mmol/L (3.5-5.1); SODIUM 133 mmol/L (136-145); UREA NITROGEN 13 mg/dL (7-18); eGFR NON AFRICAN AMERICAN 79 mL/min (90-120)
[2019-04-16 13:45] LABS: ALBUMIN 3.9 g/dL (3.4-5.0); ALKALINE PHOSPHATASE 148 U/L (46-116); ALT (SGPT) 15 U/L (10-68); PROTEIN - SERUM 8.3 g/dL (6.4-8.2)
[2019-04-16 19:41] VITALS: BP 119/74
--- NOTE | 2019-04-16 19:41 | NUR ---
PATIENT RESTING IN BED WITH NO S/S OF DISTRESS AND DENIES NEEDS AT THIS TIME. VSS. BED IN LOWEST POSITION AND CALL LIGHT WITHIN REACH. ENCOURAGED THE PATIENT TO CALL IF HE HAS NEEDS. WILL CONTINUE TO MONITOR.
--- NOTE | 2019-04-16 20:39 | NUR ---
ADMINISTERED MEDS PER ORDERS. PATIENT DENIES NEEDS. ENCOURAGED THE PATIENT TO CALL IF HE HAS NEEDS. WILL CONTINUE TO MONITOR
[2019-04-16 22:06] VITALS: BP 119/74; BMI 23.5
[2019-04-16 23:58] VITALS: BP 121/70
[2019-04-17 03:56] VITALS: BP 137/72
[2019-04-17 06:40] LABS: BASOPHILS 0.1 % (0-2); EOSINOPHILS 4.5 % (0-7); HEMATOCRIT 42.7 % (42.0-54.0); HEMOGLOBIN 14.6 g/dL (13.5-17.5); IMMATURE GRANULOCYTES 0.3 % (0-5); LYMPHOCYTES 18.4 % (15-50); MCH 31.1 pg (26.0-34.0); MCHC 34.2 g/dL (31.0-37.0); MEAN PLATELET VOLUME 9.8 fL (7.4-10.4); MONOCYTES 6.1 % (2-11); NEUTROPHILS 70.6 % (40-80); PLATELET COUNT 192 10x3/uL (130-400); RBC 4.69 10x6/uL (4.20-6.10); WBC 6.9 10x3/uL (4.8-10.8)
[2019-04-17 06:56] LABS: INR 1.1 (0.85-1.17); PROTIME 13.7 SECONDS (11.6-15.0)
[2019-04-17 06:57] LABS: APTT 44.9 SECONDS (22.8-39.4)
[2019-04-17 07:01] LABS: CALC OSMOLALITY 278 mosm/kg (275-300); CALCIUM 8.4 mg/dL (8.5-10.1); CARBON DIOXIDE 27.5 mmol/L (21.0-32.0); CHLORIDE - SERUM 103 mmol/L (98-107); CREATININE - SERUM 0.9 mg/dL (0.6-1.3); MAGNESIUM - SERUM 1.9 mg/dL (1.8-2.4); PHOSPHOROUS 4.1 mg/dL (2.5-4.9); POTASSIUM - SERUM 4.2 mmol/L (3.5-5.1); SODIUM 138 mmol/L (136-145); UREA NITROGEN 16 mg/dL (7-18); eGFR NON AFRICAN AMERICAN 89 mL/min (90-120)
[2019-04-17 07:03] LABS: GLUCOSE 143 mg/dL (74-106)
--- NOTE | 2019-04-17 07:15 | NUR ---
PT RESTING IN BED, SHIFT ASSESSMENT PERFORMED. DENIES ANY NEEDS AT THIS TIME, WILL CONT TO FOLLOW POC
[2019-04-17 07:17] VITALS: BP 150/66
[2019-04-17] MEDS ORDERED: GABAPENTIN100 MG PO (08:34)
[2019-04-17] MEDS ORDERED: LISINOPRIL10 MG PO (08:35)
[2019-04-17] MEDS ORDERED: GLIPIZIDE10 MG PO (08:35)
[2019-04-17] MEDS ORDERED: JANUMET XR 50-1 EACH PO (08:36)
--- NOTE | 2019-04-17 12:30 | NUR ---
PT RESTING IN BED EATING LUNCH, DENIES ANY NEEDS AT THIS TIME, WILL CONT TO FOLLOW POC
[2019-04-17 13:43] VITALS: Ht 175.3 cm; Wt 72.1 kg
--- NOTE | 2019-04-17 18:09 | NUR ---
PREOP ORDERS STATED TO INSERT 20G PIV TO PT LEFT ARM. 20G PIV INSERTED X1 ATTEMPT TO PT LEFT FA. PT TOLERATED WELL. DENIES ANY NEEDS AT THIS TIME, CALL LIGHT WITHIN REACH. WILL CONT TO FOLLOW POC
[2019-04-17 19:00] VITALS: BP 141/75
--- NOTE | 2019-04-17 20:20 | NUR ---
CHECKED PATIENT'S BLOOD GLUCOSE PER ORDERS. PATIENT WAS 89 AND DOES NOT REQUIRE COVERAGE AT THIS TIME. PATIENT DENIES OTHER NEEDS. BED IN LOWEST POSITION AND CALL LIGHT WITHIN REACH. ENCOURAGED THE PATIENT TO CALL IF HE HAS NEEDS.
[2019-04-17 23:09] VITALS: BP 149/71
--- NOTE | 2019-04-17 23:56 | NUR ---
VSS. REMINDED PATIENT THAT HE CAN'T HAVE ANYTHING TO EAT OR DRINK AFTER MIDNIGHT. PATIENT VERBALIZED UNDERSTANDING. PATIENT DENIES OTHER NEEDS AT THIS TIME. BED IN LOWEST POSITION AND CALL LIGHT WITHIN REACH. ENCOURAGED THE PATIENT TO CALL IF HE HAS NEEDS. WILL CONTINUE TO MONITOR.
[2019-04-18] VITALS (11 sets, daily range): BP systolic 134–159; BP diastolic 68–86
[2019-04-18 05:13] LABS: BASOPHILS 0.2 % (0-2); HEMATOCRIT 43.2 % (42.0-54.0); HEMOGLOBIN 14.4 g/dL (13.5-17.5); IMMATURE GRANULOCYTES 0.2 % (0-5); LYMPHOCYTES 20.5 % (15-50); MCH 30.3 pg (26.0-34.0); MCHC 33.3 g/dL (31.0-37.0); MCV 90.9 fL (80.0-100.0); MEAN PLATELET VOLUME 9.9 fL (7.4-10.4); MONOCYTES 6.1 % (2-11); PLATELET COUNT 215 10x3/uL (130-400); RBC 4.75 10x6/uL (4.20-6.10); RDW 12.7 % (11.5-14.5); WBC 6.4 10x3/uL (4.8-10.8)
[2019-04-18 05:31] LABS: INR 1.03 (0.85-1.17)
[2019-04-18 05:33] LABS: APTT 33.9 SECONDS (22.8-39.4)
[2019-04-18 05:35] LABS: CALC OSMOLALITY 279 mosm/kg (275-300); CALCIUM 8.1 mg/dL (8.5-10.1); CARBON DIOXIDE 28.5 mmol/L (21.0-32.0); CHLORIDE - SERUM 103 mmol/L (98-107); CREATININE - SERUM 0.8 mg/dL (0.6-1.3); GLUCOSE 123 mg/dL (74-106); POTASSIUM - SERUM 4.1 mmol/L (3.5-5.1); SODIUM 139 mmol/L (136-145); UREA NITROGEN 14 mg/dL (7-18); eGFR NON AFRICAN AMERICAN > 90 mL/min (90-120)
--- NOTE | 2019-04-18 07:15 | NUR ---
PT RESTING IN BED, SHIFT ASSESSMENT PERFORMED. DENIES ANY NEEDS AT THIS TIME. WILL CONT TO FOLLOW POC
--- NOTE | 2019-04-18 09:32 | MORECARE ---
CASE MANAGEMENT DISCHARGE SUMMARY PATIENT: JEFRY RODRIGUEZ UNIT: [id number] ADM DATE: 04/16/19 AGE: 68 : 51 SEX: M ROOM/BED: D.1206 AUTHOR: TAWANDA CASTANEDA PHYSICIAN: REFERRING PHYSICIAN: SRUTHI RODRIGUEZ MD DATE OF SERVICE: 04/18/19 Discharge Plan Patient Name: JEFRY RODRIGUEZ Facility: [facility]:[place] : 1950 Planned Disposition: Anticipated Discharge Date: Discharge Date: Expected LOS: Initial Reviewer: [email or web address] Initial Review Date: 04/18/2019 Generated: 04/18/19 10:31 am Comments DCP- Discharge Planning Updated by [email or web address]: Kristy Jameson on 04/18/19 8:[address] Patient Name: JEFRY RODRIGUEZ Admission Status: Elective Accout number: [id number] Admission Date: 04-16-2019 : 1950 Admission Diagnosis: Attending: SRUTHI RODRIGUEZ Current LOS: 2 Anticipated DC Date: Planned Disposition: Primary Insurance: MEDICARE A & B Discharge Planning Comments: CM MET WITH PATIENT AFTER OBTAINING VERBAL CONSENT. STATES PLANS TO DISCHARGE TO HOME. DISCUSSED NEED FOR HH, REHAB OR EQUIPMENT, PATIENT STATES NO NEEDS AT THIS TIME. STATES SCHEDULED FOR IR THIS MORNING. CM WILL FOLLOW AND ASSIST NEEDED. Convention Services Manager: Kristy Jameson DCPIA - Discharge Planning Initial Assessment Updated by [email or web address]: Kristy Jameson on 04/18/19 9:26 am * Is the patient Alert and Oriented? Yes * PCP [facility] * Pharmacy [facility] * Preadmission Environment Home Alone * ADLs Independent * Other Equipment WALKER, CANE * List name and contact numbers for known caregivers / representatives who currently or will assist patient after discharge: AMAURY, DAUGHTER, * Community resources currently utilized None * Additional services required to return to the preadmission environment? No * Can the patient safely return to the preadmission environment? Yes * Has this patient been hospitalized within the prior 30 days at any hospital? No Patient Name: JEFRY RODRIGUEZ Page 40722 at 0932 All edits/amendments must be made on the electronic document DICTATION DATE: 04/18/19930 EXPANSION JOINT FINISHER: SARITHA 04/18/19930 RPT#: [id number] DC DATE: STATUS: ADM IN [facility] [address] [place] [address] END OF REPORT
--- NOTE | 2019-04-18 12:00 | NUR ---
PT RESTING IN BED, FAMILY AT BEDSIDE. DENIES ANY NEEDS AT THIS TIME, WILL CONT TO FOLLOW POC
--- NOTE | 2019-04-18 13:51 | NUR ---
PT LEFT FOR IVR
--- NOTE | 2019-04-18 15:00 | NUR ---
PT RETURNED FROM IVR. DRESSING NOTED TO LEFT LEG. PULSES PRESENT TO LEFT FOOT. DENIES ANY PAIN AT THIS TIME, VSS AND WNL. WILL CONT TO FOLLOW POC
--- NOTE | 2019-04-18 15:15 | NUR ---
PT RESTING IN BED, VSS AND WNL. PULSES PRESENT TO LLE. DENIES ANY NEEDS AT THIS TIME, WILL CONT TO FOLLOW POC
--- NOTE | 2019-04-18 15:45 | NUR ---
PT RESTING IN BED, VSS AND WNL. DRESSING TO LEFT LEG C/D/I. PULSES PRESENT TO LLE. DENIES ANY NEEDS AT THIS TIME, WILL CONT TO FOLLOW POC
--- NOTE | 2019-04-18 16:30 | NUR ---
PT RESTING IN BED, VSS AND WNL. PULSES PRESENT TO LLE. DENIES ANY NEEDS AT THIS TIME, WILL CONT TO FOLLOW POC
[2019-04-19] VITALS: BP 152/65
[2019-04-19 04:00] VITALS: BP 112/57
[2019-04-19 06:31] LABS: BASOPHILS 0.1 % (0-2); EOSINOPHILS 1.7 % (0-7); HEMATOCRIT 41.1 % (42.0-54.0); HEMOGLOBIN 13.7 g/dL (13.5-17.5); IMMATURE GRANULOCYTES 0.3 % (0-5); LYMPHOCYTES 19.1 % (15-50); MCHC 33.3 g/dL (31.0-37.0); MCV 89.9 fL (80.0-100.0); MEAN PLATELET VOLUME 10.3 fL (7.4-10.4); MONOCYTES 7.1 % (2-11); NEUTROPHILS 71.7 % (40-80); PLATELET COUNT 224 10x3/uL (130-400); RBC 4.57 10x6/uL (4.20-6.10); RDW 12.8 % (11.5-14.5); WBC 7.1 10x3/uL (4.8-10.8)
[2019-04-19 06:47] LABS: CALC OSMOLALITY 276 mosm/kg (275-300); CALCIUM 8.4 mg/dL (8.5-10.1); CARBON DIOXIDE 25.8 mmol/L (21.0-32.0); CHLORIDE - SERUM 105 mmol/L (98-107); CREATININE - SERUM 0.7 mg/dL (0.6-1.3); GLUCOSE 101 mg/dL (74-106); POTASSIUM - SERUM 3.6 mmol/L (3.5-5.1); SODIUM 138 mmol/L (136-145); UREA NITROGEN 14 mg/dL (7-18); eGFR NON AFRICAN AMERICAN > 90 mL/min (90-120)
--- NOTE | 2019-04-19 07:34 | NUR ---
PT RESTING IN BED, SHIFT ASSESSMENT PERFORMED. VSS AND WNL. DENIES ANY NEEDS AT THIS TIME, CALL LIGHT WITHIN REACH. WILL CONT TO FOLLOW POC
[2019-04-19 07:54] VITALS: BP 111/66
[2019-04-19] MEDS ORDERED: ELIQUIS5 MG PO ×2 (08:16→08:17)
[2019-04-19] MEDS ORDERED: PROTONIX40 MG PO (08:17)
--- NOTE | 2019-04-19 10:51 | NUR ---
DISCHARGE INSTRUCTIONS REVIEWED WITH PT AND ALL QUESTIONS ANSWERED. PIV TO BILATERAL FA REMOVED WITH CATHETER TIPS INTACT. PT WAITING ON DAUGHTER TO ARRIVE
--- NOTE | 2019-04-19 11:47 | NUR ---
DAUGHTER HERE. PT TAKEN TO THE FRONT VIA WHEELCHAIR.
--- NOTE | 2019-04-19 19:39 | MORECARE ---
CASE MANAGEMENT DISCHARGE SUMMARY PATIENT: JEFRY RODRIGUEZ UNIT: [id number] ADM DATE: 04/16/19 AGE: 68 : 51 SEX: M ROOM/BED: D.1206 AUTHOR: TONYA,DOC PHYSICIAN: REFERRING PHYSICIAN: SRUTHI RODRIGUEZ MD DATE OF SERVICE: 04/19/19 Discharge Plan Patient Name: JEFRY RODRIGUEZ Facility: [facility]:[place] : 1950 Planned Disposition: Anticipated Discharge Date: Discharge Date: 04/19/2019 Expected LOS: Initial Reviewer: [email or web address] Initial Review Date: 04/18/2019 Generated: 04/19/19 8:38 pm Comments DCP- Discharge Planning Updated by [email or web address]: Maryan Ballesteros on 04/19/19 6:[address] Patient Name: JEFRY RODRIGUEZ Encounter No: [id number] : 1950 Primary Insurance: MEDICARE A & B Anticipated DC Date: Planned Disposition: External Planned Provider: : D/C IMM SIGNED DENIES ANY NEEDS DCP follow-up note: Patient and family in agreement with discharge plan. No changes to plan. Case management will follow and assist as needed. Maryan Ballesteros DCP- Discharge Planning Updated by [email or web address]: Kristy Jameson on 04/18/19 8:[address] Patient Name: JEFRY RODRIGUEZ Admission Status: Elective Accout number: [id number] Admission Date: 04-16-2019 : 1950 Admission Diagnosis: Attending: SRUTHI RODRIGUEZ Current LOS: 2 Anticipated DC Date: Planned Disposition: Primary Insurance: MEDICARE A & B Discharge Planning Comments: CM MET WITH PATIENT AFTER OBTAINING VERBAL CONSENT. STATES PLANS TO DISCHARGE TO HOME. DISCUSSED NEED FOR HH, REHAB OR EQUIPMENT, PATIENT STATES NO NEEDS AT THIS TIME. STATES SCHEDULED FOR IR THIS MORNING. CM WILL FOLLOW AND ASSIST NEEDED. Bufferer: Kristy Jameson DCPIA - Discharge Planning Initial Assessment Updated by [email or web address]: Kristy Jameson on 04/18/19 9:26 am * Is the patient Alert and Oriented? Yes * PCP [facility] * Pharmacy [facility] * Preadmission Environment Home Alone * ADLs Independent * Other Equipment WALKER, CANE * List name and contact numbers for known caregivers / representatives who currently or will assist patient after discharge: AMAURY, DAUGHTER, * Community resources currently utilized None * Additional services required to return to the preadmission environment? No * Can the patient safely return to the preadmission environment? Yes * Has this patient been hospitalized within the prior 30 days at any hospital? No Coverage Notice Reviewer: [email or web address] Sandi Ballesteros Notice Issued Date-Time: 04/19/2019 9:58 Notice Type: IM Discharge Notice Notice Delivered To: Patient Relationship to Patient: Self Well Surveying Engineer Name: Delivery Method: HAND - Hand Delivered Lisandra Days: Prior Verbal Notification: Recipient Understood Notice: Yes Recipient Signature: Yes Med Rec Note Co-signed by Attending: Coverage Notice Comment: Last DP export: 04/18/19 8:32 Patient Name: JEFRY RODRIGUEZ Page [phone] at 1939 All edits/amendments must be made on the electronic document DICTATION DATE: 04/19/191937 PIECE WORKER: SARITHA 04/19/191937 RPT#: [id number] DC DATE:04/19/19 STATUS: DIS IN [facility] [address] [place] [address] END OF REPORT
== END 2019-04-19 11:48 | disposition home or self-care (01) | DRG 271 ==
LOC: D.ER 12:55 → D.M3 16:22
PROVIDERS: Family Medicine; Radiology Diagnostic Radiology; ADMIT Internal Medicine Nephrology; ATTEND Internal Medicine Nephrology
PROC: 3E05317 Introduction of Other Thrombolytic into Peripheral Artery, Percutaneous Approach (ICD-10-PCS; 2019-04-18)
PROC: 04CL3ZZ Extirpation of Matter from Left Femoral Artery, Percutaneous Approach (ICD-10-PCS; principal; 2019-04-18 14:22)
DX: I82.402 Acute embolism and thrombosis of unspecified deep veins of left lower extremity (principal); F17.213 Nicotine dependence, cigarettes, with withdrawal; E87.1 Hypo-osmolality and hyponatremia; I69.351 Hemiplegia and hemiparesis following cerebral infarction affecting right dominant side; E78.5 Hyperlipidemia, unspecified; I10 Essential (primary) hypertension; E11.9 Type 2 diabetes mellitus without complications; J44.9 Chronic obstructive pulmonary disease, unspecified